=== PATIENT | female | born 1980 | race Hispanic/Latino ===

== ENCOUNTER → 2021-05-12 | Outpatient (CLI) | payer MEDICAID ==
[~2021-05-12] MED LIST: CETI10CA5 PO; FERR324T PO
== END | disposition home or self-care (01) ==
LOC: SHCH 12:36
PROVIDERS: ATTEND Internal Medicine Cardiovascular Disease
DX: I10 Essential (primary) hypertension (principal); I47.1 Supraventricular tachycardia
CPT/HCPCS: 93306